=== PATIENT | male | born 1965 | race Caucasian/White ===

== ENCOUNTER 2021-02-11 00:37 | Emergency (ER) | payer BC, OTHER ==
--- NOTE | 2021-02-11 00:42 | EDM.PDOC ---
ED HPI GENERAL MEDICAL PROBLEM - General Chief Complaint: ENT Problem Stated Complaint: EYE PAIN-METAL SHAVINGS IN EYES Time Seen by Provider: 02/11/21 00:38 Source of Information: Reports: Patient History Limitations: Reports: No Limitations - History of Present Illness INITIAL COMMENTS - FREE TEXT/NARRATIVE: 55-year-old male presents for FB sensation in b/l eyes. 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 [place] fine afterwards, was wearing goggles but not UV protection. Woke up around 11PM with intense burning/FB sensation in b/l eyes. - Related Data Allergies Allergy/AdvReac Type Severity Reaction Status Date / Time No Known Allergies Allergy Verified 04/14/14 19:40 Home Meds: Home Meds Azithromycin [Z-Todd] 250 mg PO ASDIRECTED #6 tablet 04/14/14 [Rx] Erythromycin Base [Erythromycin 0.5% Ophth Oint] 1 applic OP Q4H 3 Days #1 tube 02/11/21 [Rx] Ibuprofen [Motrin] 600 mg PO Q6H PRN #28 tab 02/11/21 [Rx] oxyCODONE HCl/Acetaminophen [Percocet 10-325 mg Tablet] 1 each PO Q4H PRN #18 tablet 02/11/21 [Rx] Past Medical History - Past Health History Medical/Surgical History: Denies Medical/Surgical History ED ROS GENERAL - Review of Systems Review Of Systems: Comprehensive ROS is negative, except as noted in HPI. ED EXAM, GENERAL - Physical Exam Exam: See Below Exam Limited By: No Limitations General Appearance: Alert, WD/WN, No Apparent Distress Eye Exam: Bilateral Eye: EOMI, PERRL, Other (No foreign bodies in bilateral eyes, increased fluorescein uptake in bilateral eyes consistent with photokeratitis) Throat/Mouth: Normal Voice, No Airway Compromise Head: Atraumatic, Normocephalic Neck: Normal Inspection Respiratory/Chest: No Respiratory Distress, No Accessory Muscle Use Cardiovascular: Normal Peripheral Pulses Extremities: Normal Inspection Neurological: Alert, Normal Gait Psychiatric: Normal Affect, Normal Mood Skin Exam: Warm, Dry, Intact, Normal Color Course - Orders/Labs/Meds Meds: Medications Discontinued Medications Generic Name Dose Route Start Last Admin Trade Name Freq PRN Reason Stop Dose Admin Tetracaine HCl 1 ml 02/11/21 00:50 02/11/21 00:52 Tetracaine Hcl/Pf 0.5% 4 Ml Bottle EYEBOTH 02/11/21 00:51 1 ml ASDIRECTED ONE Administration Tetracaine HCl Confirm 02/11/21 00:51 02/11/21 00:54 Tetracaine Hcl/Pf 0.5% 4 Ml Bottle Administered 02/11/21 00:52 Not Given Dose 4 ml .ROUTE .STK-MED ONE Departure - Departure Time of Disposition: 01:08 Disposition: Home, Self-Care 01 Condition: Good Clinical Impression: Ultraviolet keratitis of both eyes - Discharge Information Prescriptions: Erythromycin Base [Erythromycin 0.5% Ophth Oint] 1 applic OP Q4H 3 Days #1 tube Ibuprofen [Motrin] 600 mg PO Q6H PRN #28 tab PRN Reason: Pain oxyCODONE HCl/Acetaminophen [Percocet 10-325 mg Tablet] 1 each PO Q4H PRN #18 tablet PRN Reason: Pain Instructions: Ultraviolet Keratitis Referrals: PCP,None [Primary Care Provider] - Forms: ED Department Discharge Additional Instructions: The following information is given to patients seen in the emergency department who are being discharged to home. This information is to outline your options for follow-up care. We provide all patients seen in our emergency department with a follow-up referral. The need for follow-up, as well as the timing and circumstances, are variable depending upon the specifics of your emergency department visit. If you don't have a primary care physician on staff, we will provide you with a referral. We always advise you to contact your personal physician following an emergency department visit to inform them of the circumstance of the visit and for follow-up with them and/or the need for any referrals to a consulting specialist. The emergency department will also refer you to a specialist when appropriate. This referral assures that you have the opportunity for follow-up care with a specialist. All of these measure are taken in an effort to provide you with optimal care, which includes your follow-up. Under all circumstances we always encourage you to contact your private physician who remains a resource for coordinating your care. When calling for follow-up care, please make the office aware that this follow-up is from your recent emergency room visit. If for any reason you are refused follow-up, please contact the [facility] Emergency Department at and asked to speak to the emergency department charge nurse. Please follow up with your primary care physician. If you do not have a primary care physician, see below: [facility] [address] [place] [id number] [facility] [address] [place], [place] [id number] [facility] [address] [place] [id number]
[2021-02-11] MEDS ORDERED: Tetracaine HCl/PF 0.5% 4 ML Bottle EYEBOTH ONE (00:50)
[2021-02-11] MEDS ORDERED: Tetracaine HCl/PF 0.5% 4 ML Bottle ONE (00:51)
== END 2021-02-11 01:35 | disposition home or self-care (01) ==
LOC: MW.ED 00:37
DX: H16.133 Photokeratitis, bilateral (principal)
CPT/HCPCS: 99282; 99283

== ENCOUNTER 2023-01-23 12:28 | Emergency (ER) | payer BC | END 2023-01-23 14:22 | disposition home or self-care (01) | LOC: MW.ED 12:28 | DX: S29.9XXA Unspecified injury of thorax, initial encounter (principal); W01.198A Fall on same level from slipping, tripping and stumbling with subsequent striking against other object, initial encounter | CPT/HCPCS: 71101-26-LT; 71101-LT; 99283 ==